=== PATIENT | female | born 1945 | race Two or more races ===

== ENCOUNTER 2020-01-29 21:26 | Emergency (ER) | payer OTHER ==
[~2020-01-29] VITALS: Ht 157.5 cm; Wt 61.2 kg
[~2020-01-29 21:26] MED LIST: AMARYL; AMLODIPINE BESY10 MG PO; CARAFATE SU1 G/10 ML PO; CARDURA1 MG; CARdura 2MG TABLET PO; COZAAR100 MG; COZAAR25 MG; FLUCONAZOLE 10 MG/ML; GLUCOPHAGE XR500 MG; LANTUS SOL100 UNIT/1; LANTUS100 U/ML; LIPITOR40 MG PO; METFORMIN HCL1000 M1; NEURONTIN300 MG; NEURONTIN300 MG PO; NORVASC10 MG; NORVASC2.5 M1; PEPCID AC10 MG; PLAVIX75 MG; SYNTHROID137 MCG; TOPROL XL25 M1 PO
[2020-01-29] MEDS ORDERED: NORVASC5 MG (21:58)
[2020-01-29] MEDS ORDERED: SYNTHROID125 MCG (21:59)
[2020-01-29] MEDS ORDERED: BRILINTA90 MG (22:00)
[2020-01-29] MEDS ORDERED: ADULT LOW DOSE81 M1 (22:00)
== END 2020-01-30 08:53 | disposition designated cancer center or children's hospital (05) ==
LOC: ER 21:26 → CPU-OBS 21:35 → ER 01-30 08:53
DX: I25.10 Atherosclerotic heart disease of native coronary artery without angina pectoris (principal); I12.9 Hypertensive chronic kidney disease with stage 1 through stage 4 chronic kidney disease, or unspecified chronic kidney disease; N18.9 Chronic kidney disease, unspecified; I24.9 Acute ischemic heart disease, unspecified; E11.9 Type 2 diabetes mellitus without complications; I31.3 Pericardial effusion (noninflammatory); R07.89 Other chest pain; K30 Functional dyspepsia; Z79.4 Long term (current) use of insulin

== ENCOUNTER 2020-05-07 18:28 | Inpatient (IN) | payer OTHER ==
[~2020-05-07] VITALS: Ht 162.6 cm; Wt 61.2 kg
[~2020-05-07 18:28] MED LIST changes: +ADULT LOW DOSE81 M1; +BRILINTA90 MG; +NORVASC5 MG; +SYNTHROID125 MCG
[2020-05-07] MEDS ORDERED: METOPROLOL SUC100 MG PO (18:43)
[2020-05-07] MEDS ORDERED: CALCIUM 600-VI1 EAC2 PO (18:44)
== END 2020-06-17 13:45 | disposition expired | DRG 870 ==
LOC: ER 18:28 → ICU-2 22:24 → ICU 22:24
PROVIDERS: ADMIT Internal Medicine; ATTEND Internal Medicine
PROC: 5A09557 Assistance with Respiratory Ventilation, Greater than 96 Consecutive Hours, Continuous Positive Airway Pressure (ICD-10-PCS; 2020-05-07)
PROC: B24BZZZ Ultrasonography of Heart with Aorta (ICD-10-PCS; 2020-05-08)
PROC: 30233N1 Transfusion of Nonautologous Red Blood Cells into Peripheral Vein, Percutaneous Approach (ICD-10-PCS; 2020-05-10)
PROC: 5A1955Z Respiratory Ventilation, Greater than 96 Consecutive Hours (ICD-10-PCS; principal; 2020-05-12)
PROC: 0BH17EZ Insertion of Endotracheal Airway into Trachea, Via Natural or Artificial Opening (ICD-10-PCS; 2020-05-12)
PROC: 02HV33Z Insertion of Infusion Device into Superior Vena Cava, Percutaneous Approach (ICD-10-PCS; 2020-05-12)
PROC: CB2YYZZ Tomographic (Tomo) Nuclear Medicine Imaging of Respiratory System using Other Radionuclide (ICD-10-PCS; 2020-05-13)
PROC: 4A033R1 Measurement of Arterial Saturation, Peripheral, Percutaneous Approach (ICD-10-PCS; 2020-06-04)
PROC: 4A12X4Z Monitoring of Cardiac Electrical Activity, External Approach (ICD-10-PCS; 2020-06-08)
PROC: 8E0ZXY6 Isolation (ICD-10-PCS; 2020-06-14)
DX: A41.9 Sepsis, unspecified organism (principal); J15.6 Pneumonia due to other Gram-negative bacteria; I21.09 ST elevation (STEMI) myocardial infarction involving other coronary artery of anterior wall; I50.33 Acute on chronic diastolic (congestive) heart failure; J96.00 Acute respiratory failure, unspecified whether with hypoxia or hypercapnia; R65.21 Severe sepsis with septic shock; G92 Toxic encephalopathy; B37.1 Pulmonary candidiasis; I21.A1 Myocardial infarction type 2; I13.0 Hypertensive heart and chronic kidney disease with heart failure and stage 1 through stage 4 chronic kidney disease, or unspecified chronic kidney disease; I16.9 Hypertensive crisis, unspecified; J95.84 Transfusion-related acute lung injury (TRALI); E87.2 Acidosis; E87.0 Hyperosmolality and hypernatremia; N18.9 Chronic kidney disease, unspecified; D63.1 Anemia in chronic kidney disease; D69.6 Thrombocytopenia, unspecified; E87.6 Hypokalemia; E86.0 Dehydration; I25.10 Atherosclerotic heart disease of native coronary artery without angina pectoris; Z98.61 Coronary angioplasty status; E11.65 Type 2 diabetes mellitus with hyperglycemia; Z20.822 Contact with and (suspected) exposure to COVID-19